=== PATIENT | female | born 1955 | race Caucasian/White ===

== ENCOUNTER 2016-09-10 07:29 | Day surgery (SDC) | payer OTHER ==
--- NOTE | ~2016-09-10 | EGD ---
EGD REPORT [facility] [address] [place] [address] NAME: DIANA TUTTLE : [birth year] STATUS : REG [facility]#: [id number] AGE: 60 ADM/REG DATE : 09/10/16 MR#: [id number] REPORT SERV DATE: 09/10/16 DICTATED BY: NIHARIKA MONTES DATE: 09/10/16 REPORT STATUS : Draft [facility]ANSCRIBED [facility]: [facility] DATE: 09/10/16 Endoscopy Center Patient Name: Diana Tuttle Date of : 1955 Attending MD: NIHARIKA MONTES MD Procedure Date No Time: 09/10/2016 Procedure: Upper GI endoscopy Indications: Dysphagia, Heartburn; Prilosec prn. Patient Profile: Informed consent was obtained from the patient by me prior to the procedure. Risks, benefits, and alternatives were discussed including the risk of bleeding, perforation, infection, reaction to medicine, missed lesion, and cardiopulmonary complications. Referring MD: DIALLO FUNEZ Medicines: Monitored Anesthesia Care Complications: No immediate complications. Procedure: After obtaining informed consent, the endoscope was passed under direct vision. Throughout the procedure, the patient's blood pressure, pulse, and oxygen saturations were monitored continuously. The GIF [id number] was introduced through the mouth, and advanced to the second part of duodenum. The endoscope was withdrawn with careful examination all mucosal surfaces including retroflexion stomach. The upper GI endoscopy was accomplished without difficulty. The patient tolerated the procedure well. Findings: The first part of the duodenum and 2nd part of the duodenum were normal. Biopsies were taken with a cold forceps for histology. The entire examined stomach was normal. LA Grade A (one or more mucosal breaks less than 5 mm, not extending between tops of 2 mucosal folds) esophagitis was found, no nodules. The esophagus and gastroesophageal junction were examined with white light. There was no visual evidence of Al's esophagus. The examined esophagus was normal. Biopsies were taken with a cold forceps for histology from mid and upper. 48F Savary dilation performed over guidewire held in antrum; minimal resistance to dilation; endoscopic visualization afterwards no mucosal breaks. Impression: - Normal first part of the duodenum and 2nd part of the duodenum. Biopsied. - Normal stomach. - LA Grade A reflux esophagitis. - There is no endoscopic evidence of Al's esophagus. EGD REPORT [address] [address] NAME: DIANA TUTTLE : [birth year] STATUS : REG [facility]#: [id number] AGE: 60 ADM/REG DATE : 09/10/16 MR#: [id number] REPORT SERV DATE: 09/10/16 DICTATED BY: NIHARIKA MONTES DATE: 09/10/16 REPORT STATUS : Draft TRANSCRIBED BY: [employer] DATE: 09/10/16 - Normal esophagus. Biopsied. Dilated. Recommendation: - Patient has a contact number available for emergencies. The signs and symptoms of potential delayed complications were discussed with the patient. Return to normal activities tomorrow. Written discharge instructions were provided to the patient. - Regular diet. - Continue present medications. - Await pathology results. - Take Prilosec daily. Procedure Code(s): --- Professional --- 46581, Esophagogastroduodenoscopy, flexible, transoral; with insertion of guide wire followed by passage of dilator(s) through esophagus over guide wire 88712, Esophagogastroduodenoscopy, flexible, transoral; with biopsy, single or multiple Diagnosis Code(s): --- Professional --- K21.0, Gastro-esophageal reflux disease with esophagitis R13.10, Dysphagia, unspecified R12, Heartburn CPT copyright 2013 [employer]. All rights reserved. The codes documented in this report are preliminary and upon dry cleaning checker review may be revised to meet current compliance requirements. NIHARIKA MONTES MD 09/10/2016 9:15 AM This report has been signed electronically. Number of Addenda: 0 Note Initiated On: 09/10/2016 9:01 AM Scope Withdrawal Time 0 hours 0 minutes 0 seconds [id number] [id number]
--- NOTE | ~2016-09-10 | EGD ---
EGD REPORT [facility] [address] [place] [address] NAME: DIANA TUTTLE : 51 STATUS : REG [facility]#: [id number] AGE: 60 ADM/REG DATE : 09/10/16 MR#: [id number] REPORT SERV DATE: 09/10/16 DICTATED BY: NIHARIKA MONTES DATE: 09/10/16 REPORT STATUS : Draft [facility]ANS[facility]IBED [facility]: [facility] DATE: 09/10/16 Endoscopy Center Patient Name: Diana Tuttle Date of : 1955 Attending MD: NIHARIKA MONTES MD Procedure Date No Time: 09/10/2016 Procedure: Colonoscopy Indications: High risk colon cancer surveillance: Personal history of non-advanced adenoma last exam 2012. Patient Profile: Informed consent was obtained from the patient by me prior to the procedure. Risks, benefits, and alternatives were discussed including the risk of bleeding, perforation, infection, reaction to medicine, missed lesion, and cardiopulmonary complications. Referring MD: DIALLO FUNEZ Medicines: Monitored Anesthesia Care Complications: No immediate complications. Procedure: Pre-Anesthesia Assessment: - ASA Grade Assessment: II - A patient with mild systemic disease. After I obtained informed consent, the scope was passed under direct vision. Throughout the procedure, the patient's blood pressure, pulse, and oxygen saturations were monitored continuously. The PCF [id number] (thin diameter) was introduced through the anus and advanced to the ileocecal valve. Looping precluded further passage to deep cecum despite counterpressure. The colonoscope was slowly withdrawn with careful examination all mucosal surfaces including specific attention around flexures and tip deflection behind folds; retroflexion performed in rectum. The colonoscopy was performed without difficulty. The patient tolerated the procedure well. The quality of the bowel preparation was adequate. The ileocecal valve and rectum were photographed. CO2 utilized. Findings: Two sessile polyps were found in the distal transverse colon. The polyps were 5 mm in size. These polyps were removed with a cold biopsy forceps. Resection and retrieval were complete. Internal hemorrhoids were found, and they were mild. Impression: - Two 5 mm polyps in the distal transverse colon. Resected and retrieved. - Internal hemorrhoids. EGD REPORT [address] [address] NAME: DIANA TUTTLE : [birth year] [place] [facility] [place] [id number] AGE: 60 ADM/REG DATE : 09/10/16 MR#: [id number] REPORT SERV DATE: 09/10/16 DICTATED BY: NIHARIKA MONTES DATE: 09/10/16 REPORT STATUS : Draft TRANSCRIBED BY: [employer] DATE: 09/10/16 Recommendation: - Patient has a contact number available for emergencies. The signs and symptoms of potential delayed complications were discussed with the patient. Return to normal activities tomorrow. Written discharge instructions were provided to the patient. - Regular diet. - Continue present medications. - Await pathology results. - Repeat colonoscopy for surveillance based on pathology results. - Schd DCBE re: h/o polyps, comment on cecum. Procedure Code(s): --- Professional --- 88409, Colonoscopy, flexible, proximal to splenic flexure; with biopsy, single or multiple Diagnosis Code(s): --- Professional --- D12.3, Benign neoplasm of transverse colon K64.8, Other hemorrhoids Z86.010, Personal history of colonic polyps CPT copyright 2013 [employer]. All rights reserved. The codes documented in this report are preliminary and upon business performance specialist review may be revised to meet current compliance requirements. NIHARIKA MONTES MD 09/10/2016 9:41 AM This report has been signed electronically. Number of Addenda: 0 Note Initiated On: 09/10/2016 8:54 AM Scope Withdrawal Time 0 hours 8 minutes 26 seconds [id number] [id number]
[~2016-09-10 07:29] MED LIST: AMARYL4 PO; GLUCPH PO; PROBIOTICS; TRADJENTA5 MG PO
== END 2016-09-10 23:59 | disposition home or self-care (01) ==
LOC: DMU 07:29
PROVIDERS: Internal Medicine Gastroenterology
PROC: 0DB28ZX Excision of Middle Esophagus, Via Natural or Artificial Opening Endoscopic, Diagnostic (ICD-10-PCS; 2016-09-10)
PROC: 0D728ZZ Dilation of Middle Esophagus, Via Natural or Artificial Opening Endoscopic (ICD-10-PCS; 2016-09-10)
PROC: 0D718ZZ Dilation of Upper Esophagus, Via Natural or Artificial Opening Endoscopic (ICD-10-PCS; 2016-09-10)
PROC: 0DBL8ZZ Excision of Transverse Colon, Via Natural or Artificial Opening Endoscopic (ICD-10-PCS; principal; 2016-09-10 09:30)
PROC: 0DB98ZX Excision of Duodenum, Via Natural or Artificial Opening Endoscopic, Diagnostic (ICD-10-PCS; 2016-09-10 09:30)
PROC: 0DB18ZX Excision of Upper Esophagus, Via Natural or Artificial Opening Endoscopic, Diagnostic (ICD-10-PCS; 2016-09-10 09:30)
DX: Z12.11 Encounter for screening for malignant neoplasm of colon (principal); D12.3 Benign neoplasm of transverse colon; K64.8 Other hemorrhoids; Z86.010 Personal history of colon polyps; K21.0 Gastro-esophageal reflux disease with esophagitis; R13.10 Dysphagia, unspecified; R12 Heartburn; Z79.899 Other long term (current) drug therapy; Z79.84 Long term (current) use of oral hypoglycemic drugs
CPT/HCPCS: 82962; 88305